=== PATIENT | male | born 1990 | race Caucasian/White ===

== ENCOUNTER 2024-01-04 01:32 | Emergency (ER) | payer SELFPAY ==
[~2024-01-04] VITALS: Ht 172.7 cm; Wt 70.0 kg
[2024-01-04 01:37] VITALS: TEMP 98.5; O2SAT 98
[2024-01-04 02:50] VITALS: BP 116/83; PULSE 69; RESP 16
== END 2024-01-04 03:00 | disposition home or self-care (01) ==
LOC: ER 01:32
DX: R00.2 Palpitations (principal); Z00.00 Encounter for general adult medical examination without abnormal findings
CPT/HCPCS: 93005; 99283